=== PATIENT | male | born 1985 | race Caucasian/White ===

== ENCOUNTER 2020-06-03 12:46 | Emergency (ER) | payer SELFPAY ==
[2020-06-03 12:47] VITALS: BP 126/70; PULSE 51; RESP 15; TEMP 36.4; O2SAT 100; BMI 20.3
[2020-06-03 12:50] VITALS: BP 126/70; PULSE 45; RESP 11; TEMP 36.4; O2SAT 95
--- NOTE | 2020-06-03 12:50 | ED.VIS.GEN ---
History of Present Illness Chief Complaint: Trauma Informant: Patient Narrative: 34-year-old male presenting with laceration to the right medial thigh which was sustained by circular saw accident prior to arrival. EMS estimates about a liter of blood loss. His father was able to put a ratchet strap on his proximal thigh and stop the bleeding. This is still in place. EMS is called [facility] prior to arrival. Patient states his pain is 10 of 10. He has decreased sensation on his right lower extremity. He states he is able to move it. Patient denies any medical history. Last tetanus unknown. Past Medical History - Allergies and Home Meds Allergies/Adverse Reactions: Allergies No Known Allergies Allergy (Verified 06/03/20 12:50) Primary Care Physician: NOT,DEFINED [NON-STAFF] - Prior records reviewed: Yes Past Medical History: None Surgical History: noncontributory Lives: Alone Smoking Status: Unknown if ever smoked Alcohol: None Drugs: None Review of Systems General: Denies: Chills, Fever, Sweats Eyes: Denies: Visual changes - bilaterally, Diplopia ENT: Denies: Rhinorrhea, Sore throat Cardiovascular: Denies: Chest pain, Palpitations Respiratory: Denies: Dyspnea, Cough, Dyspnea on exertion Gastrointestinal: Denies: Abdominal pain, Nausea, Vomiting, Diarrhea, Melena, Hematochezia Genitourinary: Denies: Dysuria, Hematuria, Frequency Musculoskeletal: Reports: Extremity Pain - Left thigh laceration and leg pain. Denies: Neck pain, Back pain Skin: Reports: Wounds - Left thigh laceration Neurological: Denies: Headache, Weakness, Numbness Physical Exam Vital Signs/Narrative: Vital Signs Temp Pulse Resp BP Pulse Ox 06/03/20 12:47 97.5 F L 51 L 15 126/70 H 100 Inital Vital Signs reviewed: Yes General: Well nourished Eyes: Perrl ENT: Moist mucous membranes, No rhinorrhea Cardiovascular: Regular rate, Regular rhythm Respiratory: No distress, CTA bilaterally Back: Nontender, Normal Inspection Extremities: No edema, - - 18 cm laceration to right proximal thigh approximately 2 to 3 inches deep. Bleeding is controlled with ratchet strap. Diminished sensation over right lower extremity. DP/PT 1+. Patient able to logroll his leg on his own. Skin: Negative for: Cyanosis, Diaphoresis Neurological: Alert, Oriented x3, Cranial nerves II-XII grossly intact Psychological: Normal affect, Normal Mood Diagnostic/Tx/Re-eval - Medical Decision Making 34-year-old male presenting with 18 cm laceration to the proximal thigh. Estimated blood loss on scene by EMS was about a liter. Patient has ratchet strap in place with good control of bleeding. Patient does have slightly diminished sensation but has motor strength and 1+ pulses in his right lower extremity. Patient was given a liter of IV fluids, 2 g Ancef, Adacel, 100 g of fentanyl, 4 mg of [facility]fran. [facility] and [facility] if he was getting his medication. Patient will be going to [facility]. Impression: 1. 18 cm right leg laceration with arterial injury ED Disposition - Plan for ED Patient: Referrals: NOT,DEFINED [NON-STAFF] -
[2020-06-03] MEDS: 0.9% Normal Saline 1,000 ML 999 ML IV (12:54)
[2020-06-03] MEDS: Ondansetron 4 MG/2 ML Vial IV (12:55)
--- NOTE | 2020-06-03 12:55 | ED.RN ---
[facility] AT BEDSIDE
[2020-06-03] MEDS: fentaNYL 100 MCG/2 ML Ampul 50 MCG IV (12:56)
[2020-06-03] MEDS: Diphth,Pertuss(Acell),Tet Vac 0.5 ML Vial IM (12:57)
[2020-06-03 12:58] VITALS: BP 124/78; PULSE 51; RESP 15; O2SAT 100
[2020-06-03 13:01] VITALS: BP 127/73; PULSE 43; RESP 10; O2SAT 100
[2020-06-03] MEDS: Cefazolin 2 GM in 0.9% Normal Saline 100 ML IV (13:04)
--- NOTE | 2020-06-03 13:13 | ED.RN ---
PATIENT LEAVES ON [facility]'S COT, VITALS CHARTED. PATIENT REMAINS A&OX3 BUT LETHARGIC.
--- NOTE | 2020-06-03 13:15 | CM.ED ---
Social Work Responding to Trauma. Support provided to patient family. Emory AMAYA, SAMI
--- NOTE | 2020-06-03 15:42 | CHAPLAIN ---
Type of Pastoral Visit ___ Initial Visit ___ Follow-up Visit ___ On-call Visit ___ General Patient Visit ___ Spiritual Assessment ___ Family Conference ___ Bereavement ___ Rapid Response ___ Code Blue _x__ Other (describe below) Pastoral Care Referral From ___ Patient ___ Family ___ Nurse ___ Physician ___ Coffee Urn Attendant ___ Studio Hand _x__ Other (describe below) Sacrament/Intervention ___ Active listening ___ Anointing ___ Oriental Orthodox ___ Bereavement ___ Communion ___ Dipti exploration ___ ___ Life review ___ Prayer ___ Reconciliation ___ Sacrament of Sick _x__ Supportive presence ___ Wedding _x__ Other (describe below) Pastoral Comments responded to [facility] arrival at ED; trauma patient being attended and readied for transport out; spouse arrived to ED; met spouse and offered support; did leave immediately when helicopter left the premises;
== END 2020-06-03 13:12 | disposition short-term general hospital (02) ==
PROVIDERS: Emergency Provider Student in an Organized Health Care Education/Training Program
DX: S75.9 Injury of unspecified blood vessel at hip and thigh level (principal); S71.111A Laceration without foreign body, right thigh, initial encounter; W29.8XXA Contact with other powered hand tools and household machinery, initial encounter; Y93.9 Activity, unspecified; Y92.9 Unspecified place or not applicable; Y99.9 Unspecified external cause status
CPT/HCPCS: 90715; 96374; 96375; 99285; A4216; J2405